=== PATIENT | male | born 1985 | race African-American/Black ===

== ENCOUNTER 2019-04-27 10:06 | Emergency (ER) | payer OTHER ==
[~2019-04-27] VITALS: Ht 180.3 cm; Wt 90.7 kg
--- NOTE | 2019-04-27 10:20 | NUR ---
BRIGHT RED BLOOD PER RECTUM X 3 DAYS, PATIENT A/OX4, BREATHING EVEN AND UNLABORED, NO SOB NOTED.
[2019-04-27] MEDS ORDERED: IV NS 0.9% 500 ML BAG IV ONE (10:30)
[2019-04-27 10:49] LABS: BASOPHILS % (AUTO) 0.5 % (0.0-2.0); EOSINOPHILS % (AUTO) 0.9 % (0.0-6.0); HEMATOCRIT 40 % (39-51); HEMOGLOBIN 13.6 g/dL (13.5-17.5); LYMPHOCYTES # (AUTO) 1.7 /CMM (0.8-4.8); LYMPHOCYTES % (AUTO) 22.6 % (20.0-44.0); MEAN CORPUSCULAR HGB CONC 34 g/dl (31.0-36.0); MEAN CORPUSCULAR VOLUME 89 fL (80-96); MONOCYTES # (AUTO) 1.4 /CMM (0.1-1.30); NEUTROPHILS # (AUTO) 4.4 /CMM (1.8-8.9); PLATELET COUNT (AUTO) 213 /CMM (150-450); RED BLOOD CELL COUNT(AUTO) 4.46 MIL/uL (4.5-6.0); WHITE BLOOD COUNT (AUTO) 7.6 K/uL (4.3-11.0)
[2019-04-27 11:01] LABS: CREATININE 1.2 mg/dL (0.6-1.3); POTASSIUM 4.1 mmol/L (3.5-5.1)
[2019-04-27 11:05] LABS: ALBUMIN 3.3 g/dL (3.4-5.0); BILIRUBIN,DIRECT 0.1 mg/dL (0.0-0.2); BILIRUBIN,TOTAL 0.3 mg/dL (0.2-1.0); TOTAL PROTEIN, SERUM 7.5 g/dL (6.4-8.2)
--- NOTE | 2019-04-27 11:50 | NUR ---
AMBULATORY WITH STEADY GAIT, IV removed. Catheter intact and site benign. Pressure and 4x4 applied to site. No bleeding noted. Patient discharged to home in stable condition. Written and verbal after care instructions given. Patient verbalizes understanding of instruction.
[2019-04-27 11:51] VITALS: BP 124/78
== END 2019-04-27 11:51 | disposition home or self-care (01) ==
LOC: ER 10:10
DX: K52.9 Noninfective gastroenteritis and colitis, unspecified (principal)
CPT/HCPCS: 36415; 74176; 80048; 80076; 85025; 85730; 99284; J7040